=== PATIENT | female | born 1990 | race Caucasian/White ===

== ENCOUNTER 2022-03-26 11:55 | Emergency (ER) | payer OTHER, SELFPAY ==
[2022-03-26 12:45] VITALS: BP 162/83; PULSE 83; RESP 16; TEMP 36.6; O2SAT 97; BMI 41.1
--- NOTE | 2022-03-26 12:52 | ECG_ITS ---
Test Reason : elavated bp Blood Pressure : / mmHG Vent. Rate : 074 BPM Atrial Rate : 074 BPM P-R Int : 172 ms QRS Dur : 072 ms QT Int : 378 ms P-R-T Axes : 043 024 048 degrees QTc Int : 419 ms Normal sinus rhythm Nonspecific ST abnormality Abnormal ECG No previous ECGs available Referred By: Danielito Chow Electronically Signed By:Juan Sommer
--- NOTE | 2022-03-26 12:53 | ED.GENADULT ---
HPI - General Adult General Chief complaint: General Medical <CARTER Mcbride - Last Filed: 04/01/22 11:30> Stated complaint: HBP 169/151 / SOB <CARTER Mcbride - Last Filed: 04/01/22 11:30> Time Seen by Provider: 03/26/22 14:57 <CARTER Mcbride - Last Filed: 04/01/22 11:30> Source: patient <Zaina Rodriguez MD - Last Filed: 03/26/22 17:25> Mode of arrival: ambulatory <Zaina Rodriguez MD - Last Filed: 03/26/22 17:25> History of Present Illness HPI narrative: This is a 31-year-old female who is currently on Seroquel and presents with increasing issues with her blood pressure since the beginning of the month after a viral infection. Patient otherwise denies headaches or chest pain. <Zaina Rodriguez MD - Last Filed: 03/26/22 17:25> Related Data Allergies/adverse reactions: Allergies Allergy/AdvReac Type Severity Reaction Status Date / Time ADHD MEDICATIONS Allergy Unknown DOUBLE Uncoded 11/11/19 16:09 VISION, HIVES, WEIGHT GAIN, FATIGUE <CARTER Mcbride - Last Filed: 04/01/22 11:30> Review of Systems Review of Systems: Pertinent positives and negatives as stated in HPI <Zaina Rodriguez MD - Last Filed: 03/26/22 17:25> PMFSH Past Medical History Source: nursing notes reviewed <Zaina Rodriguez MD - Last Filed: 03/26/22 17:25> Social History Social History: Social History Alcohol intake: unknown Smoked in Last 30 Days: No Use of substances other than those prescribed or required for medical reasons: Unknown Advance Directives: No Advance Directives Information Provided: Yes <CARTER Mcbride - Last Filed: 04/01/22 11:30> Physical Exam ED Vital Signs: Vital Signs - 24 hr 03/26/22 12:45 03/26/22 16:12 Temperature 98 F 98.3 F Pulse Rate 83 110 H Respiratory Rate 16 23 H Blood Pressure 162/83 H 144/89 H Pulse Oximetry 97 98 Oxygen Delivery Method Room Air Room Air BMI result Body Mass Index 41.1 <CARTER Mcbride - Last Filed: 04/01/22 11:30> Vital Signs - 24 hr 03/26/22 12:45 03/26/22 16:12 Temperature 98 F 98.3 F Pulse Rate 83 110 H Respiratory Rate 16 23 H Blood Pressure 162/83 H 144/89 H Pulse Oximetry 97 98 Oxygen Delivery Method Room Air Room Air BMI result Body Mass Index 41.1 VITAL SIGNS: Reviewed. GENERAL: Well developed, well nourished, in no acute distress. HEAD: Normocephalic/atraumatic EYES: PERRLA, EOMI EARS: Ext canals without abnormality OROPHARYNX: no oral lesions noted, posterior pharynx clear LUNGS: Normal breath sounds. No adventitious sounds or accessory muscle use. SpO2<98> CARDIOVASCULAR: Regular rate and rhythm without noted murmurs, no JVD or lower extremity edema. HR-78 at the time of interview, heart rate of 110 on initial presentation. ABDOMEN: Soft, non-tender, non-distended with bowel sounds. MUSCULOSKELETAL: No tenderness, deformities, or effusions noted on gross inspection. EXTREMITIES: No cyanosis, clubbing or edema. SKIN: Inspection of the skin reveals no rashes, no diaphoresis NEUROLOGIC: Alert and oriented x 4. Strength and sensation to light touch were grossly intact x 4. PSYCH: Some pressured speech ongoing <Zaina Rodriguez MD - Last Filed: 03/26/22 17:25> Course Course Course Narrative: RME: 31 yorussell barajas presens to the ED for mutlipe days of elevated blood pressure. patient not diagnosis of HTN. patient can not see her PCP. PCP office states no available appointments. NEuro exam is intact. Labs and EKG ordered <CARTER Mcbride - Last Filed: 04/01/22 11:30> Medical Decision Making Medical Decision Making MDM Narrative: This is a 31-year-old female with asymptomatic hypertension that is been worsening? since the beginning of this month. I reviewed all investigations and my interpretation is this may be associated with some component of anxiety. There is no evidence of renal, thyroid, or cardiac involvement. Patient is otherwise discharged home in stable condition, she was strongly recommended to continue being persistent with contacting her primary care provider. <Zaina Rodriguez MD - Last Filed: 03/26/22 17:25> Differential Diagnosis Differential Diagnoses: The differential diagnosis associated with the presentation includes <Zaina Rodriguez MD - Last Filed: 03/26/22 17:25> Please see discussion above <Zaina Rodriguez MD - Last Filed: 03/26/22 17:25> Lab Data MDM Lab Attestation statement: I reviewed the patient's lab results. <Zaina Rodriguez MD - Last Filed: 03/26/22 17:25> Please see the discussion above <Zaina Rodriguez MD - Last Filed: 03/26/22 17:25> Result Diagrams: 03/26/22 13:46 03/26/22 13:46 <CARTER Mcbride - Last Filed: 04/01/22 11:30> Labs: Lab Results 03/26/22 03/26/22 03/26/22 Range/Units 13:41 13:42 13:46 WBC 10.3 (4.8-10.8) X10*3/uL RBC 4.45 (4.20-5.50) X10*6/uL Hgb 14.2 (12.0-16.0) g/dl Hct 41.9 (37.0-47.0) % MCV 94.2 (80.0-98.0) fL MCH 31.9 (27.0-33.0) pg MCHC 33.9 (31.0-35.0) g/dl RDW 13.1 (11.0-16.0) % Plt Count 299 (160-400) X10*3/uL MPV 9.8 (9.4-12.3) fL Immature Gran % (Auto) 0.3 (0.0-0.4) % Neut % (Auto) 70.3 (45-73) % Lymph % (Auto) 19.1 L (20-40) % [place] % (Auto) 8.2 (2-11) % Eos % (Auto) 1.7 (0-4) % Baso % (Auto) 0.4 (0-2) % Lymph # (Auto) 2.0 (1.2-4.9) X10*3/uL [place] # (Auto) 0.8 (0.1-1.2) X10*3/uL Eos # (Auto) 0.2 (0.0-0.4) X10*3/uL Baso # (Auto) 0.0 (0.0-0.2) X10*3/uL Abs Immat Gran (auto) 0.03 (0.00-0.03) X10*3/uL Absolute Neuts (auto) 7.2 (2.0-8.3) x10*3/uL Absolute Nucleated RBC 0.000 (0.0-0.012) X10*3/uL Nucleated RBC % (auto) 0.0 (0.0-0.2) /100WBC PT (10.0-13.1) SEC INR (0.9-1.1) APTT (26.0-36.4) SEC Sodium (135-145) mmol/L Potassium (3.3-5.1) mmol/L Chloride (96-108) mmol/L Carbon Dioxide (22-29) mmol/L Anion Gap (12-20) BUN (9-16) mg/dL Creatinine (0.5-1.4) mg/dL Estim Creat Clear Calc Estimated GFR Random Glucose (60-115) mg/dL Calcium (8.4-10.2) mg/dL Total Bilirubin (0.0-1.0) mg/dL AST (5-31) U/L ALT (0-31) U/L Alkaline Phosphatase (39-117) U/L Troponin I High Sens (<3.5-17.0) ng/L Total Protein (6.5-8.0) g/dL Albumin (3.5-5.0) g/dL TSH (0.32-4.0) uIU/mL Beta HCG, Quant mIU/mL Urine Color Yellow Urine Appearance Clear Urine pH 6.5 (5.0-9.0) Ur Specific [place] <= 1.005 (1.005-1.025) Urine Protein Negative (Neg-Trace) mg/dL Urine Glucose (UA) Negative (Negative) mg/dL Urine Ketones Negative (Negative) mg/dL Urine Blood Negative (Negative) Urine Nitrite Negative (Negative) Ur Leukocyte Esterase Negative (Negative) Urine Test NEGATIVE (NEGATIVE) 03/26/22 03/26/22 03/26/22 Range/Units 13:46 13:46 13:46 WBC (4.8-10.8) X10*3/uL RBC (4.20-5.50) X10*6/uL Hgb (12.0-16.0) g/dl Hct (37.0-47.0) % MCV (80.0-98.0) fL MCH (27.0-33.0) pg MCHC (31.0-35.0) g/dl RDW (11.0-16.0) % Plt Count (160-400) X10*3/uL MPV (9.4-12.3) fL Immature Gran % (Auto) (0.0-0.4) % Neut % (Auto) (45-73) % Lymph % (Auto) (20-40) % [place] % (Auto) (2-11) % Eos % (Auto) (0-4) % Baso % (Auto) (0-2) % Lymph # (Auto) (1.2-4.9) X10*3/uL [place] # (Auto) (0.1-1.2) X10*3/uL Eos # (Auto) (0.0-0.4) X10*3/uL Baso # (Auto) (0.0-0.2) X10*3/uL Abs Immat Gran (auto) (0.00-0.03) X10*3/uL Absolute Neuts (auto) (2.0-8.3) x10*3/uL Absolute Nucleated RBC (0.0-0.012) X10*3/uL Nucleated RBC % (auto) (0.0-0.2) /100WBC PT 10.4 (10.0-13.1) SEC INR 0.9 (0.9-1.1) APTT 35.8 (26.0-36.4) SEC Sodium 140 (135-145) mmol/L Potassium 4.1 (3.3-5.1) mmol/L Chloride 104 (96-108) mmol/L Carbon Dioxide 25 (22-29) mmol/L Anion Gap 15 (12-20) BUN 12 (9-16) mg/dL Creatinine 0.71 (0.5-1.4) mg/dL Estim Creat Clear Calc 135.8 Estimated GFR > 60 Random Glucose 64 (60-115) mg/dL Calcium 10.2 (8.4-10.2) mg/dL Total Bilirubin 0.4 (0.0-1.0) mg/dL AST 25 (5-31) U/L ALT 28 (0-31) U/L Alkaline Phosphatase 98 (39-117) U/L Troponin I High Sens < 3.5 (<3.5-17.0) ng/L Total Protein 7.5 (6.5-8.0) g/dL Albumin 4.4 (3.5-5.0) g/dL TSH (0.32-4.0) uIU/mL Beta HCG, Quant mIU/mL Urine Color Urine Appearance Urine pH (5.0-9.0) Ur Specific [place] (1.005-1.025) Urine Protein (Neg-Trace) mg/dL Urine Glucose (UA) (Negative) mg/dL Urine Ketones (Negative) mg/dL Urine Blood (Negative) Urine Nitrite (Negative) Ur Leukocyte Esterase (Negative) Urine Test (NEGATIVE) 03/26/22 Range/Units 13:46 WBC (4.8-10.8) X10*3/uL RBC (4.20-5.50) X10*6/uL Hgb (12.0-16.0) g/dl Hct (37.0-47.0) % MCV (80.0-98.0) fL MCH (27.0-33.0) pg MCHC (31.0-35.0) g/dl RDW (11.0-16.0) % Plt Count (160-400) X10*3/uL MPV (9.4-12.3) fL Immature Gran % (Auto) (0.0-0.4) % Neut % (Auto) (45-73) % Lymph % (Auto) (20-40) % [place] % (Auto) (2-11) % Eos % (Auto) (0-4) % Baso % (Auto) (0-2) % Lymph # (Auto) (1.2-4.9) X10*3/uL [place] # (Auto) (0.1-1.2) X10*3/uL Eos # (Auto) (0.0-0.4) X10*3/uL Baso # (Auto) (0.0-0.2) X10*3/uL Abs Immat Gran (auto) (0.00-0.03) X10*3/uL Absolute Neuts (auto) (2.0-8.3) x10*3/uL Absolute Nucleated RBC (0.0-0.012) X10*3/uL Nucleated RBC % (auto) (0.0-0.2) /100WBC PT (10.0-13.1) SEC INR (0.9-1.1) APTT (26.0-36.4) SEC Sodium (135-145) mmol/L Potassium (3.3-5.1) mmol/L Chloride (96-108) mmol/L Carbon Dioxide (22-29) mmol/L Anion Gap (12-20) BUN (9-16) mg/dL Creatinine (0.5-1.4) mg/dL Estim Creat Clear Calc Estimated GFR Random Glucose (60-115) mg/dL Calcium (8.4-10.2) mg/dL Total Bilirubin (0.0-1.0) mg/dL AST (5-31) U/L ALT (0-31) U/L Alkaline Phosphatase (39-117) U/L Troponin I High Sens (<3.5-17.0) ng/L Total Protein (6.5-8.0) g/dL Albumin (3.5-5.0) g/dL TSH 0.81 (0.32-4.0) uIU/mL Beta HCG, Quant < 2 mIU/mL Urine Color Urine Appearance Urine pH (5.0-9.0) Ur Specific [place] (1.005-1.025) Urine Protein (Neg-Trace) mg/dL Urine Glucose (UA) (Negative) mg/dL Urine Ketones (Negative) mg/dL Urine Blood (Negative) Urine Nitrite (Negative) Ur Leukocyte Esterase (Negative) Urine Test (NEGATIVE) <CARTER Mcbride - Last Filed: 04/01/22 11:30> Lab Results 03/26/22 03/26/22 03/26/22 Range/Units 13:41 13:42 13:46 WBC 10.3 (4.8-10.8) X10*3/uL RBC 4.45 (4.20-5.50) X10*6/uL Hgb 14.2 (12.0-16.0) g/dl Hct 41.9 (37.0-47.0) % MCV 94.2 (80.0-98.0) fL MCH 31.9 (27.0-33.0) pg MCHC 33.9 (31.0-35.0) g/dl RDW 13.1 (11.0-16.0) % Plt Count 299 (160-400) X10*3/uL MPV 9.8 (9.4-12.3) fL Immature Gran % (Auto) 0.3 (0.0-0.4) % Neut % (Auto) 70.3 (45-73) % Lymph % (Auto) 19.1 L (20-40) % [place] % (Auto) 8.2 (2-11) % Eos % (Auto) 1.7 (0-4) % Baso % (Auto) 0.4 (0-2) % Lymph # (Auto) 2.0 (1.2-4.9) X10*3/uL [place] # (Auto) 0.8 (0.1-1.2) X10*3/uL Eos # (Auto) 0.2 (0.0-0.4) X10*3/uL Baso # (Auto) 0.0 (0.0-0.2) X10*3/uL Abs Immat Gran (auto) 0.03 (0.00-0.03) X10*3/uL Absolute Neuts (auto) 7.2 (2.0-8.3) x10*3/uL Absolute Nucleated RBC 0.000 (0.0-0.012) X10*3/uL Nucleated RBC % (auto) 0.0 (0.0-0.2) /100WBC PT (10.0-13.1) SEC INR (0.9-1.1) APTT (26.0-36.4) SEC Sodium (135-145) mmol/L Potassium (3.3-5.1) mmol/L Chloride (96-108) mmol/L Carbon Dioxide (22-29) mmol/L Anion Gap (12-20) BUN (9-16) mg/dL Creatinine (0.5-1.4) mg/dL Estim Creat Clear Calc Estimated GFR Random Glucose (60-115) mg/dL Calcium (8.4-10.2) mg/dL Total Bilirubin (0.0-1.0) mg/dL AST (5-31) U/L ALT (0-31) U/L Alkaline Phosphatase (39-117) U/L Troponin I High Sens (<3.5-17.0) ng/L Total Protein (6.5-8.0) g/dL Albumin (3.5-5.0) g/dL TSH (0.32-4.0) uIU/mL Beta HCG, Quant mIU/mL Urine Color Yellow Urine Appearance Clear Urine pH 6.5 (5.0-9.0) Ur Specific [place] <= 1.005 (1.005-1.025) Urine Protein Negative (Neg-Trace) mg/dL Urine Glucose (UA) Negative (Negative) mg/dL Urine Ketones Negative (Negative) mg/dL Urine Blood Negative (Negative) Urine Nitrite Negative (Negative) Ur Leukocyte Esterase Negative (Negative) Urine Test NEGATIVE (NEGATIVE) 03/26/22 03/26/22 03/26/22 Range/Units 13:46 13:46 13:46 WBC (4.8-10.8) X10*3/uL RBC (4.20-5.50) X10*6/uL Hgb (12.0-16.0) g/dl Hct (37.0-47.0) % MCV (80.0-98.0) fL MCH (27.0-33.0) pg MCHC (31.0-35.0) g/dl RDW (11.0-16.0) % Plt Count (160-400) X10*3/uL MPV (9.4-12.3) fL Immature Gran % (Auto) (0.0-0.4) % Neut % (Auto) (45-73) % Lymph % (Auto) (20-40) % [place] % (Auto) (2-11) % Eos % (Auto) (0-4) % Baso % (Auto) (0-2) % Lymph # (Auto) (1.2-4.9) X10*3/uL [place] # (Auto) (0.1-1.2) X10*3/uL Eos # (Auto) (0.0-0.4) X10*3/uL Baso # (Auto) (0.0-0.2) X10*3/uL Abs Immat Gran (auto) (0.00-0.03) X10*3/uL Absolute Neuts (auto) (2.0-8.3) x10*3/uL Absolute Nucleated RBC (0.0-0.012) X10*3/uL Nucleated RBC % (auto) (0.0-0.2) /100WBC PT 10.4 (10.0-13.1) SEC INR 0.9 (0.9-1.1) APTT 35.8 (26.0-36.4) SEC Sodium 140 (135-145) mmol/L Potassium 4.1 (3.3-5.1) mmol/L Chloride 104 (96-108) mmol/L Carbon Dioxide 25 (22-29) mmol/L Anion Gap 15 (12-20) BUN 12 (9-16) mg/dL Creatinine 0.71 (0.5-1.4) mg/dL Estim Creat Clear Calc 135.8 Estimated GFR > 60 Random Glucose 64 (60-115) mg/dL Calcium 10.2 (8.4-10.2) mg/dL Total Bilirubin 0.4 (0.0-1.0) mg/dL AST 25 (5-31) U/L ALT 28 (0-31) U/L Alkaline Phosphatase 98 (39-117) U/L Troponin I High Sens < 3.5 (<3.5-17.0) ng/L Total Protein 7.5 (6.5-8.0) g/dL Albumin 4.4 (3.5-5.0) g/dL TSH (0.32-4.0) uIU/mL Beta HCG, Quant mIU/mL Urine Color Urine Appearance Urine pH (5.0-9.0) Ur Specific [place] (1.005-1.025) Urine Protein (Neg-Trace) mg/dL Urine Glucose (UA) (Negative) mg/dL Urine Ketones (Negative) mg/dL Urine Blood (Negative) Urine Nitrite (Negative) Ur Leukocyte Esterase (Negative) Urine Test (NEGATIVE) 03/26/22 Range/Units 13:46 WBC (4.8-10.8) X10*3/uL RBC (4.20-5.50) X10*6/uL Hgb (12.0-16.0) g/dl Hct (37.0-47.0) % MCV (80.0-98.0) fL MCH (27.0-33.0) pg MCHC (31.0-35.0) g/dl RDW (11.0-16.0) % Plt Count (160-400) X10*3/uL MPV (9.4-12.3) fL Immature Gran % (Auto) (0.0-0.4) % Neut % (Auto) (45-73) % Lymph % (Auto) (20-40) % [place] % (Auto) (2-11) % Eos % (Auto) (0-4) % Baso % (Auto) (0-2) % Lymph # (Auto) (1.2-4.9) X10*3/uL [place] # (Auto) (0.1-1.2) X10*3/uL Eos # (Auto) (0.0-0.4) X10*3/uL Baso # (Auto) (0.0-0.2) X10*3/uL Abs Immat Gran (auto) (0.00-0.03) X10*3/uL Absolute Neuts (auto) (2.0-8.3) x10*3/uL Absolute Nucleated RBC (0.0-0.012) X10*3/uL Nucleated RBC % (auto) (0.0-0.2) /100WBC PT (10.0-13.1) SEC INR (0.9-1.1) APTT (26.0-36.4) SEC Sodium (135-145) mmol/L Potassium (3.3-5.1) mmol/L Chloride (96-108) mmol/L Carbon Dioxide (22-29) mmol/L Anion Gap (12-20) BUN (9-16) mg/dL Creatinine (0.5-1.4) mg/dL Estim Creat Clear Calc Estimated GFR Random Glucose (60-115) mg/dL Calcium (8.4-10.2) mg/dL Total Bilirubin (0.0-1.0) mg/dL AST (5-31) U/L ALT (0-31) U/L Alkaline Phosphatase (39-117) U/L Troponin I High Sens (<3.5-17.0) ng/L Total Protein (6.5-8.0) g/dL Albumin (3.5-5.0) g/dL TSH 0.81 (0.32-4.0) uIU/mL Beta HCG, Quant < 2 mIU/mL Urine Color Urine Appearance Urine pH (5.0-9.0) Ur Specific [place] (1.005-1.025) Urine Protein (Neg-Trace) mg/dL Urine Glucose (UA) (Negative) mg/dL Urine Ketones (Negative) mg/dL Urine Blood (Negative) Urine Nitrite (Negative) Ur Leukocyte Esterase (Negative) Urine Test (NEGATIVE) <Zaina Rodriguez MD - Last Filed: 03/26/22 17:25> Independent Interpretation I performed an independent interpretation of an: EKG <Zaina Rodriguez MD - Last Filed: 03/26/22 17:25> Interpretation: Normal sinus rhythm, HR-74, no STEMI, [place]/QRS/QTC are within normal limits. <Zaina Rodriguez MD - Last Filed: 03/26/22 17:25> Discharge Plan Discharge Clinical Impression: Elevated blood pressure reading, Anxiety <CARTER Mcbride - Last Filed: 04/01/22 11:30> Patient Disposition: Home, Self-Care <CARTER Mcbride - Last Filed: 04/01/22 11:30> Instructions: DASH Eating Plan (ED), Hypertension (ED) <CARTER Mcbride - Last Filed: 04/01/22 11:30> Additional Instructions: 1. Resume all home medications as prescribed. 2. Please review the dietary and activity level recommendations. 3. Please continue to contact your primary care provider for re-evaluation of your blood pressure. Return to the ER if you have any acute worsening or additional symptoms. <CARTER Mcbride - Last Filed: 04/01/22 11:30> Referrals: Abdirashid Dumont III, MD [Primary Care Provider] - <CARTER Mcbride - Last Filed: 04/01/22 11:30> Stand Alone Forms: Work/School Release <CARTER Mcbride - Last Filed: 04/01/22 11:30> Discharge Date/Time: 03/26/22 18:10 <CARTER Mcbride - Last Filed: 04/01/22 11:30>
--- OUTSIDE RECORDS SUMMARY | 2022-03-26 13:43 | XMS_ITS | Continuity of Care Document ---
:1990 [facility] Address [address] [place] [address], [address] [place] [id number]- Care Team Providers Name Role Phone Tim GRIER MD, Abdirashid Hunter Primary Care Physician [place] [facility] [place] [id number] Date(s): 04/08/19 - 04/18/19 [facility] [address] [place] [address], [address] [place] [id number]- Attending Physician: Breonna Gandara Admitting Physician: AdmtrBreonna Referring Physician: Admtr, Ar8 Allergies, Adverse Reactions, Alerts Substance Reaction Severity Status Neurontin Active lithium carbonate Hives Active Ritalin-SR Blurred vision NOS Active Strattera Abdominal Pain Active Immunizations Given and Recorded Vaccine Date Status Refusal Reason tetanus/diphtheria/pertussis, acel(Tdap) 05/30/17 Recorde d Human Papillomavirus Vaccine1 02/09/08 Given Human Papillomavirus Vaccine2 12/02/07 Given Meningococcal Poly Vacc (oldterm)3 02/09/08 Given Tet/Diphth/Acel, Pertussis (oldterm)4 02/09/08 Given influenza virus vaccine, inactivated 12/04/06 Given 1Admin Note: VIS 03/28/06 [id number] Note: vis 03.28.063Admin Note: VIS 03/23/07 [id number] Note: VIS 09/04/2005 GIVEN Medications Nexplanon 68 mg subcutaneous implant 1 each = 68 mg, Subcutaneous Infusion, Once, Patient brought to office and Dorothy Ramirez CNM inserted on 10/08/15 lot#[id number] exp 02/2020 [facility]#[id number], # 1 each, 0 Refills, Soft Stop, 08/26/17 9:37:38 EDT Start Date: 08/26/17 Status: OrderedZofran ODT 4 mg oral tablet, disintegrating 1 tablet = 4 mg, By Mouth, Every 8 hours, PRN as needed for nausea/vomiting, # 9 tablet, 0 Refills, Maintenance, 02/19/19 9:08:00 EST, DIS Tablet, [id number], 163, cm, 12/02/18 10:46:00 EDT, Height, 95.5, kg, 02/19/19 8:47:00 EST, Dry Weight Start Date: 02/19/19 Stop Date: 02/22/19 Status: Ordered Problem List Condition Effective Dates Status Health Status Informant Abnormal glucose tolerance Active test(Confirmed)1 ADD - Attention deficit disorder with Active hyperactivity(Confirmed) Anxiety(Confirmed) Active Contraception(Confirmed) Active Depression affecting Active (Confirmed) Diabetes, gestational(Confirmed) Active Hyperlipidemia(Confirmed) Active Obesity due to excess Active calories(Confirmed)(Worsening) Premenstrual dysphoric Active disorder(Confirmed) Abnormal finding on Active ultrasound(Confirmed)2 VSD (ventricular septal Active defect)(Confirmed)3 1Couldn't tolerate another screen so will tx as [id number]; 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
--- OUTSIDE RECORDS SUMMARY | 2022-03-26 13:43 | XMS_ITS | Continuity of Care Document ---
:1990 Author Organization [facility] Address [address] [place] [id number]- Care Team Providers Name Role Phone Tim GRIER MD, Abdirashid Hunter Primary Care Physician Encounter [facility] Date(s): 04/08/19 - 04/08/[address] [address]- [facility] Attending Physician: Preston HOLBROOK, Samaria Johnson Allergies, Adverse Reactions, Alerts Substance Reaction Severity [...] inactivated 12/04/06 Given 1Admin Note: VIS 03/28/06 [id number] Note: vis 03.28.063Admin Note: VIS 03/23/07 [id number] Note: VIS 09/04/2005 GIVEN Medications Macrobid macrocrystals-monohydrate 100 mg oral capsule 1 capsule = 100 mg, By Mouth, 2 times a day, for 7 days, # 14 capsule, 0 Refills, Acute 04/15/19 10:19:00 EST, 04/08/19 10:19:00 EST, Capsule, [id number], 163, cm, 04/08/19 9:55:00 EST, Height,95.5, kg, 02/19/19 8:47:00 EST, Dry Weight Start Date: 04/08/19 Stop Date: 04/15/19 Status: OrderedNexplanon 68 mg subcutaneous implant 1 each = 68 mg, Subcutaneous Infusion, Once, Patient brought to office and Dorothy Ramirez CNM inserted on 10/08/15 lot#[id number] exp 02/2020 [facility]#[id number], # 1 each, 0 Refills, Soft Stop, 08/26/17 9:37:38 EDT Start Date: 08/26/17 Status: OrderedZofran ODT 4 mg oral tablet, disintegrating 1 tablet = 4 mg, By Mouth, Every 8 hours, PRN as needed for nausea/vomiting, # 9 tablet, 0 Refills, Maintenance, 02/19/19 9:08:00 EST, DIS Tablet, [id number], 163, cm, 12/02/18 10:46:00 EDT, Height, [...] tolerate another screen so will tx as [id number]; 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
--- OUTSIDE RECORDS SUMMARY | 2022-03-26 13:43 | XMS_ITS | Continuity of Care Document ---
:1990 Author Organization [facility] Address [address] [place] [address]- Care Team Providers Name Role Phone Tim GRIER MD, Abdirashid Hunter Primary Care Physician Encounter [facility] [place] Date(s): 02/19/19 - 02/19/[address] [address]- [facility] Encounter Diagnosis Acute pyelonephritis (Final) - 02/19/19 Discharge Disposition: A-D/C Home Attending Physician: Gerhard Aviles DO Admitting Physician: Gerhard Aviles DO Referring Physician: Not on Staff, Referring MD Allergies, Adverse Reactions, Alerts Substance Reaction Severity [...] inactivated 12/04/06 Given 1Admin Note: VIS 03/28/06 [id number] Note: vis 03.28.063Admin Note: VIS 03/23/07 [id number] Note: VIS 09/04/2005 GIVEN Medications Cipro 500 mg oral tablet 1 tablet = 500 mg, By Mouth, Every 12 hours, for 7 days, # 14 tablet, 0 Refills, Acute 02/26/19 9:14:00 EST, 02/19/19 9:14:00 EST, Tablet, [id number], 163, cm, 12/02/18 10:46:00 EDT, Height, 95.5, kg, 02/19/19 8:47:00 EST, Dry Weight Start Date: 02/19/19 Stop Date: 02/26/19 Status: OrderedNexplanon 68 mg subcutaneous implant 1 each = 68 mg, Subcutaneous Infusion, Once, Patient brought to office and Dorothy Ramirez CNM inserted on 10/08/15 lot#[id number] exp 02/2020 [facility]#[id number], # 1 each, 0 Refills, Soft Stop, 08/26/17 9:37:38 EDT Start Date: 08/26/17 Status: OrderedZofran ODT 4 mg oral tablet, disintegrating 1 tablet = 4 mg, By Mouth, Every 8 hours, PRN as needed for nausea/vomiting, # 9 tablet, 0 Refills, Maintenance, 02/19/19 9:08:00 EST, DIS Tablet, [id number], 163, cm, 12/02/18 10:46:00 EDT, Height, [...] tolerate another screen so will tx as [id number]; 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 03/2017 Results Orders for Microbiology Reports Name Date Wet Prep 02/19/19 Microbiology Reports TEST:Wet Prep STATUS:Auth (Verified) BODY SITE: SOURCE:VAGINA COLLECTED DATE/TIME:02/19/19 8:25 AMWet Prep SPECIMEN DESCRIPTION : VAGINAL SPECIMEN SPECIAL REQUESTS : NONE DIRECT EXAM : 4+ WHITE BLOOD CELLS NO TRICHOMONAS,YEAST,OR CLUE CELLS OBSERVED REPORT STATUS : FINAL 02/19/2019 Vital Signs Most recent to oldest 1 2 3 [Reference Range]: Weight 95.5 kg 95.5 kg (02/19/19 8:47 AM) (02/19/19 2:12 AM) Oxygen Saturation [94-100 %] 99 % 100 % 98 % (02/19/19 8:47 AM) (02/19/19 6:23 AM) (02/19/19 4:08 AM) Pulse Rate [55-90 bpm] 83 bpm 94 bpm 85 bpm (02/19/19 8:47 AM) *H* (02/19/19 4:0 8 AM) (02/19/19 6:23 AM) Blood Pressure [90-138/55-84 115/58 mm Hg 97/56 mm Hg 107 /59 mm Hg mm Hg] (02/19/19 8:47 AM) (02/19/19 6:23 AM) (02/19/19 4:08 AM) Respiratory Rate [16-30 20 br/min 18 br/min 18 br/mi n br/min] (02/19/19 8:47 AM) (02/19/19 6:23 AM) (02/19/19 4:08 AM) Temperature [96.8-100.4 98.7 DegF 99.0 DegF 99.4 Deg F DegF] (02/19/19 6:23 AM) (02/19/19 4:08 AM) (02/19/19 2:12 AM) Liters per Minute 0 L/min (02/19/19 8:47 AM) Mode of Delivery (Oxygen) Room air Room air Room a ir (02/19/19 8:47 AM) (02/19/19 6:23 AM) (02/19/19 4:08 AM) Blood pressure sites Arm, left Arm, right Arm, left (02/19/19 8:47 AM) (02/19/19 6:23 AM) (02/19/19 4:08 AM) Temperature Route Oral Oral Oral (02/19/19 6:23 AM) (02/19/19 4:08 AM) (02/19/19 2:12 AM) Dry Weight 95.5 kg 95.5 kg (02/19/19 8:47 AM) (02/19/19 2:12 AM) Social History Social History Type Response Smoking Status Never smoker entered on: 10/07/17 Sex
--- OUTSIDE RECORDS SUMMARY | 2022-03-26 13:44 | XMS_ITS | Continuity of Care Document ---
:1990 Author Organization [facility] Address [address] [place] [address], [address] [place] [address]- Care Team Providers Name Role Phone Tim GRIER MD, Abdirashid Hunter Primary Care Physician Encounter [facility] Date(s): 12/12/20 - 01/11/21 [facility] [address] [place] [address]- Attending Physician: Breonna Gandara Admitting Physician: Breonna Gandara Referring Physician: AdmtrBreonna Allergies, Adverse Reactions, Alerts Substance Reaction Severity Status Neurontin weight gain Active lithium carbonate Hives Active Ritalin-SR Blurred vision NOS Active Strattera narcolepsy Active Abdominal Pain Immunizations Given and Recorded Vaccine Date Status Refusal Reason tetanus/diphtheria/pertussis, acel(Tdap) 05/30/17 Recorde d Human Papillomavirus Vaccine1 02/09/08 Given Human Papillomavirus Vaccine2 12/02/07 Given Meningococcal Poly Vacc (oldterm)3 02/09/08 Given Tet/Diphth/Acel, Pertussis (oldterm)4 02/09/08 Given influenza virus vaccine, inactivated 12/04/06 Given 1Admin Note: VIS 03/28/06 [id number] Note: vis 03.28.063Admin Note: VIS 03/23/07 [id number] Note: VIS 09/04/2005 GIVEN Medications citalopram 10 mg oral tablet 10 mg, 1, tablet, By Mouth, Daily, Refills 0, Maintenance, 12/12/20 13:41:00 EDT, Partial fill upon patient request if the prescription is for a schedule II opioid drug. Start Date: 12/12/20 Status: OrderedMultivitamin Daily, 0 Refills, Maintenance, 12/12/20 13:42:00 EDT, Partial fill upon patient request if the prescription is for a schedule II opioid drug. Start Date: 12/12/20 Status: OrderedNexplanon 68 mg subcutaneous implant 1 each = 68 mg, Subcutaneous Infusion, Once, Patient brought to office and Dorothy Ramirez CNM inserted on 10/08/15 lot#[id number] exp 02/2020 [facility]#[id number], # 1 each, 0 Refills, Soft Stop, 08/26/17 9:37:38 EDT Start Date: 08/26/17 Status: Ordered Problem List Condition Effective Dates Status Health Status Informant ADD - Attention deficit disorder with Active hyperactivity(Confirmed) Anxiety(Confirmed) Active Depression affecting Active (Confirmed) Hyperlipidemia(Confirmed) Active Obesity due to excess Active calories(Confirmed)(Worsening) Premenstrual dysphoric Active disorder(Confirmed) VSD (ventricular septal Active defect)(Confirmed)1 1Small VSD seen on echo 03/2017 Social History Social History Type Response Smoking Status Never smoker entered on: 10/07/17 Sex
--- OUTSIDE RECORDS SUMMARY | 2022-03-26 13:44 | XMS_ITS | Continuity of Care Document ---
:1990 Author [facility] Address [address] [place] [address] Care Team Providers Name Role Phone Abdirashid Dumont III, MD Primary Care Physician [place] [facility] [place] 12/12/20 - 12/19/20 [facility] [address] [place] [address]- Attending Physician: Jose HOLBROOK [OB], Emilia Mazariegos Referring Physician: Abdirashid Dumont III, MD Allergies, Adverse Reactions, Alerts Substance Reaction [...] inactivated 12/04/06 Given 1Admin Note: VIS 03/28/06 [id number] Note: vis 03.28.063Admin Note: VIS 03/23/07 [id number] Note: VIS 09/04/2005 GIVEN Medications citalopram 10 [...] and Dorothy Ramirez CNM inserted on 10/08/15 lot#[id number] exp 02/2020 [facility]#[id number], # 1 each, 0 Refills, Soft Stop, 08/26/17 9:37:38 EDT Start Date: 08/26/17 Status: Ordered Problem List Condition Effective Dates Status Health Status Informant ADD - Attention deficit disorder with Active hyperactivity(Confirmed) Anxiety(Confirmed) Active Depression affecting Active (Confirmed) Hyperlipidemia(Confirmed) Active Obesity due to excess Active calories(Confirmed)(Worsening) Premenstrual dysphoric Active disorder(Confirmed) VSD (ventricular septal Active defect)(Confirmed)1 1Small VSD seen on echo 03/2017 Vital Signs Most recent to oldest [Reference Range]: 1 Height 163 cm (12/12/20 1:17 PM) Weight 103.6 kg (12/12/20 1:17 PM) Body Mass Index [18.5-24.99] 38.99 *>HHI* (12/12/20 1:17 PM) Weight Obtained Via Standing scale (12/12/20 1:17 PM) Social History Social History Type Response Smoking Status Never smoker entered on: 10/07/17 Sex
--- OUTSIDE RECORDS SUMMARY | 2022-03-26 13:44 | XMS_ITS | Continuity of Care Document ---
:1990 Author Organization [facility] Address [address] [place] [address]- Care Team Providers Name Role Phone Abdirashid Dumont III, MD Primary Care Physician Encounter [facility] [place] Date(s): 03/02/22 - 03/09/22 [facility] [address], [place] [address] Attending Physician: Thony Morrison DO Referring Physician: Abdirashid Dumont III, MD Allergies, [...] inactivated 12/04/06 Given 1Admin Note: VIS 03/28/06 [id number] Note: vis 03.28.063Admin Note: VIS 03/23/07 [id number] Note: VIS 09/04/2005 GIVEN Medications citalopram 10 mg oral tablet 10 mg, 1, tablet, By Mouth, Daily, Refills 0, Maintenance, 12/12/20 13:41:00 EDT, Partial fill upon patient request if the prescription is for a schedule II opioid drug. Start Date: 12/12/20 Status: OrderedFlonase 50 mcg/inh nasal spray 1 sprays, Nares, Both, 2 times a day, # 16 Gm, 0 Refills, Maintenance, 03/03/22 0:11:00 EST, [place], [id number], Partial fill upon patient request if the prescription is for a schedule II opioiddrug., 1 sprays Nares, Both 2 times a day, 164, c... Start Date: 03/03/22 Status: OrderedMultivitamin Daily, 0 Refills, Maintenance, 12/12/20 13:42:00 EDT, Partial fill upon patient request if the prescription is for a schedule II opioid drug. Start Date: 12/12/20 Status: OrderedNexplanon 68 mg subcutaneous implant 1 each = 68 mg, Subcutaneous Infusion, Once, Patient brought to office and Dorothydeonna Ramirez CNM inserted on 10/08/15 lot#[id number] exp 02/2020 [facility]#[id number], # 1 each, 0 Refills, Soft Stop, 08/26/17 9:37:38 EDT Start Date: 08/26/17 Status: Orderedpseudoephedrine 30 mg oral capsule 1 capsule = 30 mg, By Mouth, Every 8 hours, PRN as needed for congestion, # 10 capsule, 0 Refills, Maintenance, 03/02/22 9:09:00 EST, [place], [id number], Partial fill upon patient request if the prescription is for a schedule II opioid drug.,... Start Date: 03/02/22 Status: Ordered Problem List Condition Confirmation Course Effective Status Health Informa nt Dates Status ADD - Attention Confirmed Active deficit disorder with hyperactivity Anxiety Confirmed Active Depression affecting Confirmed Active Hyperlipidemia Confirmed Active Obesity due to Confirmed Worsening Active excess calories Premenstrual Confirmed Active dysphoric disorder VSD (ventricular Confirmed Active septal defect)1 1Small VSD seen on echo 03/2017 Vital Signs Most recent to oldest [Reference Range]: 1 Height 164 cm (03/02/22 8:48 AM) Oxygen Saturation [94-100 %] 99 % (03/02/22 8:48 AM) Pulse Rate [55-90 bpm] 93 bpm *H* (03/02/22 8:48 AM) Blood Pressure [90-138/55-84 mm Hg] 149/90 mm Hg *H* (03/02/22 8:48 AM) Respiratory Rate [16-30 br/min] 16 br/min (03/02/22 8:48 AM) Temperature [96.8-100.4 DegF] 98.3 DegF (03/02/22 8:48 AM) Mode of Delivery (Oxygen) Room air (03/02/22 8:48 AM) Blood pressure sites Arm, right (03/02/22 8:48 AM) Temperature Route Temporal (03/02/22 8:48 AM) Social History Social History Type Response Smoking Status Never smoker entered on: 10/07/17 Sex Note Desiree Marinelli: PERFORM, SIGN, VERIFY Event Display: Patient Education/Instruction Authored Date: [id number] [facility] *[facility] Clinical Summary Name SHERRY MARES Age 31 Years 1990 PCP Tim GRIER MD, Abdirashid Hunter PCP Visit Date 03/02/2022 08:25:00 Additional Instructions: Scheduled Appointments?? Future Appointments ?No Future Appointments Scheduled Follow-Up Instructions ?? Diagnosis Acute pharyngitis, unspecified Medications: Please continue your medications until treatment is completed or stopped by your provider. Discuss any questions related to medications with your provider. New Medications [id number], [address] [place] [phone], [phone] Pseudoephedrine (pseudoephedrine 30 mg oral capsule) 1 capsule Oral every 8 hours as needed as needed for congestion. Refills: 0. Next Dose: Medications to Continue with No Changes These medications were not printed or sent to your pharmacy Citalopram (citalopram 10 mg oral tablet) 1 tab(s) Oral Daily. Next Dose: Etonogestrel (Nexplanon 68 mg subcutaneous implant) 1 Each Subcutaneous Infusion once. Patient brought to office and Dorothy Ramirez CNM inserted on 10/08/15 lot#[id number] exp 02/2020 [facility]#[id number]. Refills: 0. Next Dose: Multivitamin Daily. Next Dose: Allergy Info:?? Strattera; Ritalin-SR; lithium carbonate; Neurontin Medications Given This Visit Future Orders ?No future orders Vital Signs Height 164 cm Weight BMI Blood Pressure 149 mm Hg/90 mm Hg Temperature 98.3 DegF Pulse Rate 93 bpm Respiratory Rate 16 br/min 02 Sat Mode of Delivery 99 %/Room air You can now view a summary of your hospital visit from the comfort of your home through a free online portal called [employer]. [employer] is a website that allows you to securely view yourmedical information including discharge summary, medications and follow-up visits. ??You can also send a secure electronic message to your doctor???s office to request appointments, renew medications or just ask a question. You can enroll at [email or web address] or register during your next office visit. Disclaimer:?? The information provided is of a general nature and is intended to be used in conjunction with the recommendations and advice of your health care practitioner. ??Every effort has been made to ensure that the information provided is accurate and complete at the time it is provided to you however, as your needs change, or, as new ??information becomes available, different or additional instructions may be required. If you have questions, please consult with your primary care provider or pharmacist, as appropriate.??This information is not intended to serve as substitution for assessment and evaluation by a qualified health care provider. If you do not have a primary care provider, you may find a [facility] provider by calling [facility] at [phone]. For information about the plan of care including goals and instructions for your diagnosis, please see the patient education orders section of this document. Patient Education Materials?? The content of this educational material or handout may have been modified, supplemented, or adaptedfrom its original content and format to support your individualized medical care. Patient Care team information Care Team PersonnelName: Tim GRIER MD, Abdirashid Hunter Position: [facility] Ambulatory (view) Member Role: PCP Address: Address: [address] [place] [address]- Name: Tennille Murray LPN Position: [facility] OB RN Member Role: Primary Care Nurse Care Team Related PersonsName: MARANDA MARES Address: home [address] [place] [address] Name: SUZAN JULIAN Address: home [address] [place] [address] Name: LILIANA DE LEÓN Address: home [address] [place] [address] Name: ISELA GUTIERREZ Address: [employer] Address: home [address] [place] [address]
--- OUTSIDE RECORDS SUMMARY | 2022-03-26 13:44 | XMS_ITS | Continuity of Care Document ---
:1990 Author Organization [facility] Address [address] [place] [address], [address] [place] [address]- Care Team Providers Name Role Phone Tim GRIER MD, Abdirashid Hunter Primary Care Physician Encounter [facility] [place] Date(s): 04/17/20 - 05/17/20 [facility] [address] [place] [address]- Allergies, Adverse Reactions, Alerts Substance Reaction Severity [...] inactivated 12/04/06 Given 1Admin Note: VIS 03/28/06 [id number] Note: vis 03.28.063Admin Note: VIS 03/23/07 [id number] Note: VIS 09/04/2005 GIVEN Medications Nexplanon 68 mg subcutaneous implant 1 each = 68 mg, Subcutaneous Infusion, Once, Patient brought to office and Dorothy Ramirez CNM inserted on 10/08/15 lot#[id number] exp 02/2020 [facility]#[id number], # 1 each, 0 Refills, Soft Stop, [...] tolerate another screen so will tx as [id number]; 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
--- OUTSIDE RECORDS SUMMARY | 2022-03-26 13:44 | XMS_ITS | Continuity of Care Document ---
:1990 Author Organization [facility] Address [address] [place] [address]- Care Team Providers Name Role Phone Tim GRIER MD, Abdirashid Hunter Primary Care Physician Encounter [facility] Date(s): 06/15/21 - 06/15/[address] [address]- Discharge Disposition: A-D/C Home Attending Physician: Gaby Portillo DO Admitting Physician: Gaby Portillo DO Referring Physician: Not on Staff, Referring [...] inactivated 12/04/06 Given 1Admin Note: VIS 03/28/06 [id number] Note: vis 03.28.063Admin Note: VIS 03/23/07 [id number] Note: VIS 09/04/2005 GIVEN Medications citalopram 10 [...] and Dorothy Ramirez CNM inserted on 10/08/15 lot#[id number] exp 02/2020 [facility]#[id number], # 1 each, 0 Refills, Soft Stop, [...] 03/2017 Vital Signs Most recent to oldest 1 2 3 [Reference Range]: Oxygen Saturation [94-100 %] 100 % 98 % 99 % (06/15/21 1:42 PM) (06/15/21 9:35 AM) (06/15/21 9:3 0 AM) Pulse Rate [55-90 bpm] 83 bpm 82 bpm 107 bpm (06/15/21 1:42 PM) (06/15/21 9:35 AM) *H* (06/15/21 9:30 AM ) Blood Pressure [90-138/55-84 mm 131/84 mm Hg 135/77 mm Hg Hg] (06/15/21 1:42 PM) (06/15/21 9:35 AM) Respiratory Rate [16-30 br/min] 20 br/min 16 br/min (06/15/21 1:42 PM) (06/15/21 9:35 AM) Temperature [96.8-100.4 DegF] 97.9 DegF (06/15/21 9:35 AM) Mode of Delivery (Oxygen) Room air Room air Room a ir (06/15/21 1:42 PM) (06/15/21 9:35 AM) (06/15/21 9:3 0 AM) Temperature Route Oral (06/15/21 9:35 AM) Social History Social History Type Response Smoking Status Never smoker entered on: 10/07/17 Sex
--- OUTSIDE RECORDS SUMMARY | 2022-03-26 13:44 | XMS_ITS | Continuity of Care Document ---
:1990 Author Organization [facility] Address [address] [place] [id number]- Care Team Providers Name Role Phone Tim GRIER MD, Abdirashid Hunter Primary Care Physician Encounter [facility] Date(s): 03/02/22 - 03/03/[address] [address]- Encounter Diagnosis Acute conjunctivitis (Final) - 03/03/22 Discharge Disposition: A-D/C Walkout Attending Physician: Not on Staff, Attending MD Admitting Physician: Not on Staff, Admitting MD Referring Physician: Not on Staff, Referring MD [...] inactivated 12/04/06 Given 1Admin Note: VIS 03/28/06 [id number] Note: vis 03.28.063Admin Note: VIS 03/23/07 [id number] Note: VIS 09/04/2005 GIVEN Medications ciprofloxacin 0.3% ophthalmic solution 2 drops, Eyes, Both, Every 4 hours, for 7 days, # 5 mL, 0 Refills, Acute 03/10/22 0:11:00 EST, 03/03/22 0:11:00 EST, Ophth Solution, [facility]/pharmacy #[id number], Partial fill upon patient request if the prescription is for a schedule II opioid drug., 2 drops E... Start Date: 03/03/22 Stop Date: 03/10/22 Status: Orderedcitalopram 10 mg oral tablet 10 mg, 1, tablet, By Mouth, Daily, Refills 0, Maintenance, 12/12/20 13:41:00 EDT, Partial fill upon patient request if the prescription is for a schedule II opioid drug. Start Date: 12/12/20 Status: OrderedFlonase 50 mcg/inh nasal spray 1 sprays, Nares, Both, 2 times a day, # 16 Gm, 0 Refills, Maintenance, 03/03/22 0:11:00 EST, [place], [id number], Partial fill upon patient request [...] and Dorothy Ramirez CNM inserted on 10/08/15 lot#[id number] exp 02/2020 [facility]#[id number], # 1 each, 0 Refills, Soft Stop, [...] Vital Signs Most recent to oldest [Reference 1 2 3 Range]: Oxygen Saturation [94-100 %] 97 % 99 % 98 % (03/03/22 12:34 AM) (03/02/22 10:39 PM) (03/02/22 9:06 PM) Pulse Rate [55-90 bpm] 88 bpm 94 bpm 106 bpm (03/03/22 12:34 AM) *H* *H* (03/02/22 10:39 PM) (03/02/22 9:06 P M) Blood Pressure [90-138/55-84 mm 147/97 mm Hg 156/95 mm Hg 159/97 mm Hg Hg] *H* *H* *H* (03/03/22 12:34 AM) (03/02/22 10:39 PM) (03/02/22 9:06 PM) Respiratory Rate [16-30 br/min] 16 br/min 16 br/min 20 br/min (03/03/22 12:34 AM) (03/02/22 9:06 PM) (03/02/22 8:42 PM) Temperature [96.8-100.4 DegF] 98.1 DegF 98.3 DegF 98 .1 DegF (03/03/22 12:34 AM) (03/02/22 10:39 PM) (03/02/22 9:06 PM) Mode of Delivery (Oxygen) Room air Room air Room a ir (03/03/22 12:34 AM) (03/02/22 9:06 PM) (03/02/22 8:42 PM) Blood pressure sites Arm, right Arm, left Arm, left (03/03/22 12:34 AM) (03/02/22 10:39 PM) (03/02/22 9:06 PM) Temperature Route Oral Oral Oral (03/03/22 12:34 AM) (03/02/22 10:39 PM) (03/02/22 9:06 PM) Social History Social History Type Response Smoking Status Never smoker entered on: 10/07/17 Sex EKG study Event Display: EKG Authored Date: Note Elvin Marcano MD: PERFORM, SIGN, VERIFY Event Display: Patient Education Handout Authored Date: Elvin Marcano MD: PERFORM Event Display: Patient Education Leaflets Authored Date: [id number] High Blood Pressure,??To Be Confirmed, No Treatment ?? [id number] High Blood Pressure,??To Be Confirmed, No Treatment Your blood pressure today was higher than normal. Sometimes anxiety, pain, or other issues can cause a short-term rise in blood pressure. It later returns to normal. Blood pressure that is high only one time doesn???t mean that you have high blood pressure (hypertension). High blood pressure is a long-term (chronic) illness. But you should have your blood pressure measured again in the next few daysto find out if it???s still high. Blood pressure measurements are given as 2 numbers. Systolic blood pressure is the upper number. This is the pressure when the heart contracts. Diastolic blood pressure is the lower number. This is the pressure when the heart relaxes between beats. You will see your blood pressure readings written together. For example, a person with a systolic pressure of 118 and a diastolic pressure of 78 will have 118/78 written in the medical record. Blood pressure is classified as normal, raised (elevated), or stage 1 or stage 2 high blood pressure: ??? Normal blood pressure. Systolic of less than 120 and diastolic of less than 80 (120/80). ??? Elevated blood pressure. Systolic of 120 to 129 and diastolic less than 80. ??? Stage 1 high blood pressure. Systolic is 130 to 139 or diastolic between 80 to 89. ??? Stage 2 high blood pressure. Systolicis 140 or higher or the diastolic is 90 or higher. Lifestyle changes can help manage your blood pressure. These include weight loss, exercise, and quitting smoking. Have your blood pressure checked regularly to be sure it's under control. Home care To track your blood pressure, your healthcare provider may ask you to come into the office at different times and on different days. If your provider asks you to check your readings at home, ask them what times of the day to test and for how many days. Before you leave the office, ask your provider to show you how to take your blood pressure. Ask questions if you don't understand something. Using a home blood pressure monitor Think about buying an automatic blood pressure monitor. Ask your provider for a recommendation as well as the correct size cuff to fit your arm. You can buy blood pressure monitors at most pharmacies. The [employer] advises the following guidelines for home blood pressure monitoring:??? Don't smoke or drink coffee or other caffeinated drinks for 30 minutes before taking your blood pressure. ??? Go to the bathroom before the test. ??? Relax for at least 5 minutes before taking the measurement. ??? Sit with your back supported (don't sit on a couch or soft chair). Keep your feet onthe floor uncrossed. Place your arm on a solid flat surface (like a table) with the upper part of the arm at heart level. Place the middle of the cuff directly above the bend of the elbow. Check the monitor's instruction manual for an illustration. ??? Take multiple readings. When you measure, take 2 to 3 readings one minute apart. Record all of the results. ??? Take your blood pressure at the same time every day, or as your provider advises. ??? Record the date, time, and blood pressure reading. ??? Take the record with you to your next medical appointment. If your blood pressure monitor has a built-in memory, simply take the monitor with you to your next appointment. ??? Call your provider if you have several high readings. Don't be frightened by a single high blood pressure reading. But if youget a few high readings, check in with your provider. ?? Follow-up care Keep all of your follow-up appointments. If your blood pressure is more than 120 over 80 on 2 out of 3 days, you will need to follow up with your healthcare provider for more evaluation and treatment. Don???t put this off! High blood pressure can be treated. High blood pressure that???s not treated raises your risk for heart attack, heart failure, kidney disease, and stroke. ?? Call 911 Call 911 if you have any of these: ??? Blood pressure of 180/120 or higher ??? Unusual chest pain or shortness of breath ??? Weakness of an arm or leg or one side of the face ??? Problems speaking or seeing ??? Severe headache ??? Sudden severe pain in your belly (abdomen) ??? Extreme drowsiness, confusion, or fainting ??? Severe or persistent dizziness or spinning feeling (vertigo) ?? When to get medical advice Call your healthcare provider right away if any of these occur: ??? Blood pressure of 180/120 or higher, without other symptoms ??? Throbbing or rushing sound in the ears ??? Nosebleed ??? Mild or intermittent dizziness or spinning feeling (vertigo) ?? Last Reviewed Date: 2021 ?? [id number] [employer]. All rights reserved. This information is not intended as a substitute for professional medical care. Always follow your healthcare professional's instructions. ??Elvin Marcano MD: PERFORM Event Display: Patient Education Leaflets Authored Date: [id number] Conjunctivitis, Nonspecific ?? [id number] Conjunctivitis, Nonspecific The membrane that covers??the white part of??your eye (the conjunctiva) is inflamed. Inflammation happens when your body responds to an injury, allergic reaction, infection, or illness. Symptoms of inflammation in the eye may include redness, irritation, itching, swelling, or burning. These symptoms should go away within the next 24 hours. Conjunctivitis may be related to a particle that was in youreye. If so, it??may wash??out with your tears or irrigation treatment. Being exposed to liquid chemicals or fumes may also cause this reaction.?? Home care ??? Put a cold pack on the eye for 20 minutes at a time. This will reduce pain. To make acold pack, put ice cubes in a plastic bag that seals at the top. Wrap the bag in a clean, thin towelor cloth. ??? Artificial tears may be prescribed to reduce irritation or redness. These should be used 3 to 4 times a day. ??? You may use acetaminophen or ibuprofen to control pain, unless another medicine was prescribed. If you have chronic liver or kidney disease, talk with your healthcare providerbefore using these medicines. Also talk with your provider if you have ever had a stomach ulcer or gastrointestinal bleeding. ??? If you wear contact lenses, don't use them until your healthcare provider says it's OK. ?? Follow-up care Follow up with your healthcare provider, or as advised. ?? When to seek medical advice Call your healthcare provider right away if any of the following occur: ??? Eyelid swells more ??? Eye pain gets worse ??? Redness or drainage from the eye gets worse ??? Blurry vision gets worse, or you have increased sensitivity to light ??? Normal vision does not return within 24 to 48 hours ?? Last Reviewed Date: 2021 ?? [id number] [employer]. All rights reserved. This information is not intended as a substitute for professional medical care. Always follow your healthcare professional's instructions. ?? Patient Care team information Care Team PersonnelName: Tim GRIER MD, Abdirsahid Hunter Position: [facility] Ambulatory (view) Member Role: PCP Address: Address: [address] [place] [id number] Name: Tennille Murray LPN Position: [facility] OB RN Member Role: Primary Care Nurse Name: Elvin Marcano MD Position: [facility] ED Medicine MD Member Role: ED Attending Physician Address: Address: [address] [place] [address] Name: Chantel (ED) RN, Nayeli Rosado Position: [facility] ED RN W/OE and Tasks Member Role: Patient Care Provider Care Team Related PersonsName: MARANDA MARES Address: home [address] [place] [id number] Name: JULIAN MARES Address: home [address] [place] [address] Name: LILIANA DE LEÓN Address: home [address] [place] [address] Name: ISELA GUTIERREZ Address: Timothy BRANDTMOODY Address: home [address] [place] [address]
--- OUTSIDE RECORDS SUMMARY | 2022-03-26 13:44 | XMS_ITS | Continuity of Care Document ---
:1990 Author Organization [facility] Address [address] [place] [address]- Care Team Providers Name Role Phone Tim GRIER MD, Abdirashid Hunter Primary Care Physician [place] [facility] [place] 04/08[place]19 - 04/15/19 [facility] [address] [place] [address]- Attending Physician: Samaria Johnston MD Referring Physician: Dorothy Ramirez CNM Allergies, Adverse Reactions, Alerts Substance Reaction Severity [...] inactivated 12/04/06 Given 1Admin Note: VIS 03/28/06 [id number] Note: vis 03.28.063Admin Note: VIS 03/23/07 [id number] Note: VIS 09/04/2005 GIVEN Medications Nexplanon 68 mg subcutaneous implant 1 each = 68 mg, Subcutaneous Infusion, Once, Patient brought to office and Dorothy Ramirez CNM inserted on 10/08/15 lot#[id number] exp 02/[address] 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
[2022-03-26 13:50] LABS: MANUAL DIFF FLAG NO
[2022-03-26 13:53] LABS: Appearance Urine Clear; Color Urine Yellow; PH 6.5 (5.0-9.0)
[2022-03-26 13:54] LABS: Basophils Percent Auto 0.4 % (0-2); Eosinophils Absolute Auto 0.2 X10*3/uL (0.0-0.4); Eosinophils Percent Auto 1.7 % (0-4); Hematocrit 41.9 % (37.0-47.0); Hemoglobin 14.2 g/dl (12.0-16.0); Imm Gran Abs Auto 0.03 X10*3/uL (0.00-0.03); Imm Gran Pct Auto 0.3 % (0.0-0.4); Lymphocytes Percent Auto 19.1 % (20-40); Mean Corpuscular HGB Conc 33.9 g/dl (31.0-35.0); Mean Corpuscular Hemoglobin 31.9 pg (27.0-33.0); Mean Corpuscular Volume 94.2 fL (80.0-98.0); Mean Platelet Volume 9.8 fL (9.4-12.3); Monocytes Absolute Auto 0.8 X10*3/uL (0.1-1.2); Monocytes Percent Auto 8.2 % (2-11); Neutrophils Absolute Auto 7.2 x10*3/uL (2.0-8.3); Neutrophils Percent Auto 70.3 % (45-73); Platelet Count 299 X10*3/uL (160-400); Red Blood Count 4.45 X10*6/uL (4.20-5.50); Red Cell Distribution Width 13.1 % (11.0-16.0); White Blood Count 10.3 X10*3/uL (4.8-10.8)
[2022-03-26 13:54] LABS: Glucose Urine UA Negative (Negative); Leukocyte Esterase Urine Negative (Negative); Nitrite Urine Negative (Negative); Specific Gravity - Urine <= 1.005 (1.005-1.025); Urine Blood Negative (Negative); Urine Ketones Negative (Negative); Urine Protein Negative (Neg-Trace)
[2022-03-26 13:57] LABS: UPreg QC Valid YES; Urine Pregnancy NEGATIVE (NEGATIVE)
[2022-03-26 13:59] LABS: INTERNATIONAL NORM RATIO 0.9 (0.9-1.1); Prothrombin Time 10.4 SEC (10.0-13.1)
[2022-03-26 14:02] LABS: Partial Thromboplastin Time 35.8 SEC (26.0-36.4)
[2022-03-26 14:07] LABS: Alanine Aminotransferase 28 U/L (0-31); Albumin Level 4.4 g/dL (3.5-5.0); Alkaline Phosphatase 98 U/L (39-117); Anion Gap 15 (12-20); Aspartate Amino Transferase 25 U/L (5-31); Bilirubin Total 0.4 mg/dL (0.0-1.0); Blood Urea Nitrogen 12 mg/dL (9-16); Calcium 10.2 mg/dL (8.4-10.2); Carbon Dioxide 25 mmol/L (22-29); Chloride 104 mmol/L (96-108); Creatinine Clr Calc Pharmacy 135.8; Estimated Glomerular Filt Rate > 60; Glucose Random 64 mg/dL (60-115); Potassium 4.1 mmol/L (3.3-5.1); Sodium 140 mmol/L (135-145); Total Protein 7.5 g/dL (6.5-8.0)
[2022-03-26 14:27] LABS: HCG Quantitative < 2 mIU/mL; Troponin-I High Sensitivity < 3.5 ng/L (<3.5-17.0)
--- NOTE | 2022-03-26 15:01 | PC.NURSE ---
Patient with concern for hypertension has been ongoing issue recently, does not take antihypertensives has been having headaches does have a history of migraines. No cardiac related health issues does have depression and anxiety. Some SOB and vague chest pain complaint EKG done in triage . No vision changes per patient no distress noted will CTM
--- NOTE | 2022-03-26 15:08 | PC.NURSE ---
Patient AOx 4 neuros intact ambulatory with steady gait
--- NOTE | 2022-03-26 16:02 | PC.NURSE ---
assumed care of pt resting quietly while watching tv denies any pain
--- NOTE | 2022-03-26 16:04 | PC.NURSE ---
pt changed over to hospital attire placed on traffic monitor specialist
[2022-03-26 16:12] VITALS: BP 144/89; PULSE 110; RESP 23; TEMP 36.8; O2SAT 98
[2022-03-26 16:52] LABS: Thyroid Stimulating Hormone 0.81 uIU/mL (0.32-4.0)
[2022-03-26 18:06] VITALS: BP 153/92; PULSE 97; RESP 17; O2SAT 100
--- NOTE | 2022-03-26 18:10 | PC.NURSE ---
discharge instructions given/explained,ambulates safely/independently, no respiratory distress, able to speak in full sentences, all questions answered
== END 2022-03-26 18:10 | disposition home or self-care (01) ==
PROVIDERS: Physician Assistant; Emergency Provider Student in an Organized Health Care Education/Training Program; PCP Internal Medicine
DX: R03.0 Elevated blood-pressure reading, without diagnosis of hypertension (principal); F41.9 Anxiety disorder, unspecified
CPT/HCPCS: 36415; 80053; 81003; 81025; 84443; 84484; 84702; 85025; 85610; 85730; 93005; 99283; 99284